=== PATIENT | male | born 1985 | race Caucasian/White ===

== ENCOUNTER → 2023-12-26 | Outpatient (CLI) | payer OTHER, SELFPAY ==
--- NOTE | 2023-12-26 08:21 | MRI_ITS ---
ACR Level 3 findings have been noted. An addendum which confirms receipt of the report will follow. INDICATION: RT ELBOW MUSCLE INJURY, FASCIA AND TENDON OF PRT BICEPS RT EXAMINATION: MRI - RIGHT MR UE Joint W/O Contrast TECHNIQUE: Multiplanar and multisequence MR images of the right elbow. IV Contrast Dosage and Agent: None. COMPARISON: None. FINDINGS: TENDONS: Complete tear of the distal biceps tendon with laxity and approximately 5 cm superficial retraction of tendon to the level of the radiocapitellar joint. The medial common flexor and lateral common extensor tendons demonstrate normal signal characteristics. The triceps and biceps tendon are intact. MUSCLES: Normal muscle bulk and signal. BONE: No fracture or abnormal bone marrow signal. JOINT: Articular cartilage intact.] Trace elbow joint fluid without gross joint effusion. LIGAMENTS: The medial and lateral ligaments are intact. OTHER SOFT TISSUES: . The ulnar nerve is normal in the cubital tunnel. MRI/Upper Ext Joint Only(Routine) IMPRESSION: Complete tear of the biceps tendon from its distal radial insertion with retraction approximately 5 cm to the level of the radiocapitellar joint. Recommend orthopedic consultation as soon as possible. Electronically Signed: Justin Love MD at 9:10 EDT ,
== END | disposition home or self-care (01) ==
PROVIDERS: Referring Provider Physician Assistant; Visit Provider Physician Assistant
DX: S46.291A Other injury of muscle, fascia and tendon of other parts of biceps, right arm, initial encounter (principal)
CPT/HCPCS: 73221

== ENCOUNTER 2023-12-31 09:47 | Day surgery (SDC) | payer OTHER, SELFPAY ==
--- NOTE | 2023-12-31 10:14 | PCM.PRE.AN2 ---
ASA Classification* ASA Classification ASA Classification: 2 Assessment & Plan Anesthesia* Anesthesia Assessment Anesthesia Assessment: Discussed sedation and/or anesthesia options, risks, benefits, and alternatives with patient/parents/legal guardian/POA. Questions invited. The patient/parents/legal guardian/POA seems to understand and agrees to proceed with anesthesia plan. Reviewed the physical assessment, medical history, allergy history and patient home medications list prior to surgery/procedure/anesthetic and documented any changes. Performed airway and anesthesia risk assessments. 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 When Was Last Pacemaker Check QUESTION #4 FULL TEXT: You/Your Family Experience fever (hyperthermia) with Anesthesia Last Oral Intake Last Oral intake: Last Oral Intake NPO since Meds taken in AM with sips of water? Meds patient instructed to take am of surgery PONV PONV - geomorphology teacher: PONV - geomorphology teacher Female No 12/30/23 09:17 HX of Motion Sickness No 12/30/23 09:17 HX of N/V After Surgery No 12/30/23 09:17 Non-Smoker Yes 12/30/23 09:17 Duration of Surgery greater Yes 12/30/23 09:17 than 60 minutes Number of Risk Factors 2 12/30/23 09:17 PONV Score Moderate Risk 12/30/23 09:17 Respiratory Assessment Respiratory Assessment - geomorphology teacher: Respiratory Tract Infection Hx - geomorphology teacher Hx Respiratory Tract Infection No 12/30/23 09:17 STOP Sleep Apnea STOP Sleep Apnea - geomorphology teacher: STOP Sleep Apnea - geomorphology teacher Hx Hypertension No 12/30/23 09:17 Hx Sleep Apnea No 12/30/23 09:17 CPAP BIPAP Do you snore loudly (louder No 12/30/23 09:17 than talking or can be heard Do you often feel tired/ No 12/30/23 09:17 fatigued/ sleepy during daytime? Has anyone observed you stop No 12/30/23 09:17 breathing during sleep? STOP Results Negative 12/30/23 09:17 QUESTION #5 FULL TEXT : Do you snore loudly (louder than talking or can be heard through closed doors)? 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 Specify any problems Hx of Preganancy in last 3 N/A 12/30/23 09:17 Months Nurse Filling Out Transfusion DSCHRIBER 12/30/23 09:17 & Questions: Date: 12/30/23 12/30/23 09:17 Time: 09:19 12/30/23 09:17 Patient unable to answer at this time (ie. confused, unrespo /Reproduction History /Reproductive History - geomorphology teacher: /Reproductive Hx- geomorphology teacher Hx Now No 12/30/23 09:17 Gestational Age (in weeks): EDC: Hx Hx Para Hx Section SAB No 12/30/23 09:17 Active Medications Active Medications: Current Medications Generic Name Dose Route Start Last Admin Trade Name Freq PRN Reason Stop Dose Admin Cefazolin Sodium 2 gm/ Sodium 110 mls @ 150 mls/hr 12/31/23 11:10 Chloride IV 12/31/23 11:53 PREOP ONE Lactated Ringer's 1,000 mls @ 15 mls/hr 12/31/23 10:00 IV .Q48H MARLA PFSH Medical History Wears contact lenses Alcohol use Non-smoker Home Medications ?Medication ?Instructions ?Recorded ?Last Taken ?Type NK 12/30/23 Unknown History Allergy/AdvReac Type Severity Reaction Status Date / Time No Known Allergies Allergy Verified 12/31/23 09:50 Surgical History Hx of wisdom tooth extraction Social History Smoking Status: Never smoker Review of Systems (Anesthesia) ROS Narrative System reviewed and no additional complaints, except as documented.
[2023-12-31 10:18] VITALS: BP 107/64; PULSE 54; RESP 17; TEMP 36.3; O2SAT 100; BMI 25.2
[2023-12-31] MEDS: Lactated Ringers 1,000 ML 15 ML IV (10:22)
[2023-12-31] MEDS: Cefazolin 2 GM in 0.9% Normal Saline (100mL Bag) 100 ML IV (11:31)
[2023-12-31 12:35] VITALS: BP 107/64; BP 123/81; PULSE 62; RESP 16; TEMP 36.1; O2SAT 96
--- NOTE | 2023-12-31 12:37 | PCM.POST.ANE ---
Anesthesia: Postop Eval I Current Vital Signs Temperature: 97 F Pulse Rate: 61 Blood Pressure: 123/81 Respiratory Rate: 14 Pulse Ox: 97 Oxygen Delivery Method: Room Air Assessment Airway patent: Yes Spontaneous unlabored respirations: Yes Mental status: Awake and Calm nausea: No Vomiting: No Anesthesia Complication: No Fluid Hydration Crystalloid volume administer (ml): 1,000 Total IV fluid infused: 1,000 Progress Note Anesthesia document: Postop Eval 1 completed: Yes
[2023-12-31 12:38] VITALS: BP 123/81; PULSE 61; RESP 14; TEMP 36.1; O2SAT 97
[2023-12-31 12:40] VITALS: BP 107/64; BP 117/78; PULSE 60; RESP 16; O2SAT 96
[2023-12-31 12:45] VITALS: BP 107/64; BP 119/79; PULSE 62; RESP 16; TEMP 36.1; O2SAT 97
--- NOTE | 2023-12-31 12:55 | OP.PCM_ITS ---
Report of Operation Date of Procedure: 12/31/23 Description of Surgical Findings:: Preoperative diagnosis: Right distal biceps tendon rupture Postoperative diagnosis: Right distal biceps tendon rupture Procedure: Right distal biceps tendon repair Surgeon: Colt Marquez DO Global Account Director: NETTA Pastor Anesthesia: General LMA Anesthesiologist: Dr. Logan Complications: None apparent Drains: None Estimated blood loss: 5 cc Urinary output: None measured IV fluids: Per anesthesia record Specimens: None Surgical implants: Arthrex 7 mm tenodesis screw bio composite, Arthrex biceps button Surgical indications: This is a 38-year-old male seen in the outpatient setting diagnosed with a right distal biceps tendon rupture which was sustained as a zepeda injury at home approximately 2 weeks ago. MRI confirmed the diagnosis. I recommended surgical intervention in the form of repair of right distal biceps tendon. The risks, benefits, alternatives to procedure were reviewed with patient at length in the outpatient setting and he agreed to proceed. Risks included but were not limited to bleeding, infection, loss of life or limb, risk of anesthesia, persistent paresthesias, neurovascular injury, persistent pain, need for additional surgery, tendon rerupture, stiffness, loss of hand or elbow function. Patient expressed understanding wish to proceed with surgery. Informed consent obtained in the office. Description of procedure: Patient was seen in preoperative holding area. Patient was identified by name, medical record number, date of . The operative extremity was marked with a surgical marker. We confirmed informed consent with the patient and all questions were answered to the patient's satisfaction. Supraclavicular block was administered prior to the procedure per anesthesia staff. At time of his procedure, patient was brought to the operative suite and pos itioned supine a standard operating table. All bony prominences were well- padded. General anesthesia was induced and endotracheal tube placed. The hand table attached to the right side of the table. We spun the bed 90 degrees. A well-padded pneumatic tourniquet was applied to the right upper arm. We then prepped and draped the right upper extremity in normal, sterile orthopedic fashion. 2 g Ancef was administered prior to incision by anesthesia staff. We performed a timeout at this point confirming side, site, and operation to be performed. No concerns voiced and elected to proceed. Right upper extremity was then exsanguinated with Esmarch bandage. Tourniquet was inflated 250 mmHg remained up for approximately 25 minutes. An oblique incision was made ulnar to brachial radialis approximately 2 cm distal to the elbow volar crease. Skin and subcutaneous tissue was dissected sharply with a 15 blade scalpel. I then bluntly dissected in the subcutaneous plane and identified the lateral antebrachial cutaneous nerve. This was protected throughout the case. I then bluntly dissected down to the level of the radial tuberosity. Minimal stump was remaining. Seroma was encountered. I was able to palpate the tendon in the distal brachium. I retrieved the tendon from the wound with a Allis clamp. I debrided the end of the tendon with significant mop ends and tendinosis noted. This was debrided to a healthy tendon stump. I then performed a running, locking Krak?w stitch with a #2 FiberWire. The bone was freed from soft tissue with a montague elevator prior to drilling. I then selected a point in the central portion of the radial tuberosity and drilled bicortically with a vendor supplied pin for the biceps button. I then utilized a 9 mm cannulated reamer to ream the near cortex of the radial tuberosity. I passed the sutures from the tendon through the biceps button sequentially. The ends of the suture were then passed through the distal portion of the tendon to elimi lesa creep in the distal tendon. The button was then passed bicortically, flipped to engage the far cortex of the radius. Tendon was able to be dunked nicely into the tenodesis site. Sutures were then tied over top of the tendon. I then placed a Bio-Tenodesis screw on the radial aspect of the tendon with excellent cortical purchase to reinforce the repair. Sutures were then cut proximal to the screw. The tourniquet was then deflated. Hemostasis was excellent. Dermis was reapproximated buried 3-0 Vicryl suture and skin was closed with running subcuticular 4-0 Monocryl with Dermabond. Sterile compression dressing and simple sling was then applied. Patient tolerated procedure well without apparent complication. Patient was transferred to PACU in stable condition. Post Operative Plan: Weightbearing: Nonweightbearing operative extremity, gentle range of motion as tolerated Antibiotics: Ancef 2 g x 1 dose preoperatively DVT Prophylaxis: Aspirin 81 mg twice daily to start tomorrow for 2 weeks Lee: None Dressing: Okay to shower on postoperative day #2. X-Rays: None Pain Medication: Oxycodone Rx upon discharge. Tylenol and ibuprofen encouraged. Follow-up: 2 weeks post-operatively with me in the office. Plan to initiate physical therapy at 2 weeks for range of motion. No strengthening until 6 weeks postoperatively.
[2023-12-31] MEDS: Ketorolac 30 MG/ML Syringe IV (13:15)
[2023-12-31 13:20] VITALS: BP 107/64
--- NOTE | 2023-12-31 13:27 | POSTOPAN2_ITS ---
Anesthesia Postop Eval I Sum Postop Eval Completion status Anesthesia document: Postop Eval 1 completed: Yes Anesthesia Postop Eval I Summary Anesthesia Postop Eval I Summary: Anesthesia Postop Eval I: Assessment Summary Airway patent Yes 12/31/23 12:38 [email or web address] Spontaneous unlabored Yes 12/31/23 12:38 [email or web address] respirations Mental status Awake,Calm 12/31/23 12:38 [email or web address] nausea No 12/31/23 12:38 [email or web address] Vomiting No 12/31/23 12:38 [email or web address] Anesthesia Postop Eval I: Fluid Summary Crystalloid volume administer 1,000 12/31/23 12:38 [email or web address] (ml) Colloids volume administered ( ml) Blood Product volume administered (ml) Total IV fluid infused 1,000 12/31/23 12:38 [email or web address] Anesthesia Postop Eval I: Summary Notes Anesthesia Complication No 12/31/23 12:38 [email or web address] Anesthesia Complication Comment: Post-operative progress note Anesthesia: Postop Eval II Evaluation Mental status: Awake Pain Level: 0 nausea: No Vomiting: No
--- NOTE | 2023-12-31 13:27 | PCM.POSTANE2 ---
Anesthesia Postop Eval I Sum Postop Eval Completion status Anesthesia document: Postop Eval 1 completed: Yes Anesthesia Postop Eval I Summary Anesthesia Postop Eval I Summary: Anesthesia Postop Eval I: Assessment Summary Airway patent Yes 12/31/23 12:38 CORRECTIONAL [email or web address] [email or web address] Spontaneous unlabored Yes 12/31/23 12:38 CORRECTIONAL [email or web address] [email or web address] respirations Mental status Awake,Calm 12/31/23 12:38 CORRECTIONAL [email or web address] [email or web address] nausea No 12/31/23 12:38 CORRECTIONAL [email or web address] [email or web address] Vomiting No 12/31/23 12:38 CORRECTIONAL [email or web address] [email or web address] Anesthesia Postop Eval I: Fluid Summary Crystalloid volume administer 1,000 12/31/23 12:38 CORRECTIONAL [email or web address] [email or web address] (ml) Colloids volume administered ( ml) Blood Product volume administered (ml) Total IV fluid infused 1,000 12/31/23 12:38 CORRECTIONAL [email or web address] [email or web address] Anesthesia Postop Eval I: Summary Notes Anesthesia Complication No 12/31/23 12:38 CORRECTIONAL [email or web address] [email or web address] Anesthesia Complication Comment: Post-operative progress note Anesthesia: Postop Eval II Evaluation Mental status: Awake Pain Level: 0 nausea: No Vomiting: No
== END 2023-12-31 13:33 | disposition home or self-care (01) ==
LOC: SDC 09:48 → AC 09:49
PROVIDERS: Referring Provider Student in an Organized Health Care Education/Training Program; Visit Provider Student in an Organized Health Care Education/Training Program
PROC: (CPT 24341; principal; 2023-12-31 10:55)
DX: S46.111A Strain of muscle, fascia and tendon of long head of biceps, right arm, initial encounter (principal); E66.3 Overweight; Z68.25 Body mass index [BMI] 25.0-25.9, adult; X58.XXXA Exposure to other specified factors, initial encounter
CPT/HCPCS: 24341; 64415; 01710; J7120; J2405